=== PATIENT | female | born 1965 ===

== ENCOUNTER 2021-10-09 00:59 | Emergency (ER) | payer SELFPAY ==
[2021-10-09 02:05] LABS: ANION GAP 11.7 mEq/L (7-13)
== END 2021-10-09 02:51 | disposition home or self-care (01) ==
LOC: DL.ED 00:59
DX: R10.31 Right lower quadrant pain (principal)
CPT/HCPCS: 36415; 80053; 81003; 82150; 83605; 83690; 85025; 99283; 99284